=== PATIENT | male | born 1990 ===

== ENCOUNTER 2017-07-14 04:42 | Emergency (ER) | payer OTHER ==
--- NOTE | 2017-07-14 05:12 | C.PDOC ---
History Of Present Illness 27 year old male presents to the ER with a complaint of right a right sided tooth ache for the few days that worsened today. Denies fever.headache, dizziness, drainage or bleeding gums. Time Seen by Provider: 07/14/17 05:09 Chief Complaint (Nursing): Dental Pain History Per: Patient History/Exam Limitations: no limitations Onset/Duration Of Symptoms: Days Current Symptoms Are (Timing): Still Present Quality: Positive for: Aching Recent travel outside of the [place]: No Past Medical History Reviewed: Historical Data, Nursing Documentation, Vital Signs Vital Signs: Last Vital Signs Temp 98.1 F 07/14/17 04:49 Pulse 68 07/14/17 04:49 Resp 18 07/14/17 04:49 BP 146/82 07/14/17 04:49 Pulse Ox 99 07/14/17 05:19 - Medical History PMH: No Chronic Diseases Surgical History: No Surg Hx Family History: States: Unknown Family Hx - Social History Hx Alcohol Use: No Hx Substance Use: No - Immunization History Hx Tetanus Toxoid Vaccination: No Hx Influenza Vaccination: No Hx Pneumococcal Vaccination: No Review Of Systems ENT: Positive for: Mouth Pain. Negative for: Mouth Swelling, Throat Pain Physical Exam - Physical Exam Appears: Non-toxic, No Acute Distress Skin: Normal Color, Warm, Dry Head: Atraumatic, Normacephalic, No Swelling (Facial) Eye(s): bilateral: Normal Inspection, EOMI Oral Mucosa: Moist Tongue: Normal Appearing Lips: Normal Appearing Teeth: Caries (to right upper and lower posterior molars), Tender To Palpation, No Other (erythema) Gingiva: Normal Appearing, No Erythema, No Swelling, No Abscess, No Other ( erythema or fluctuant mass) Throat: Normal, No Erythema, No Exudate ED Course And Treatment O2 Sat by Pulse Oximetry: 99 (Room air) Pulse Ox Interpretation: Normal Progress Note: Motrin administered for pain, patient instructed to follow up with dentist for further management. Disposition - Disposition Referrals: Non [facility] Provider, [Non-Staff] - Disposition: HOME/ ROUTINE Disposition Time: 05:09 Condition: STABLE Additional Instructions: Please follw up with dentist today Take meds as prescribed if youre unable to see dentist this week Return if worse Prescriptions: Ibuprofen [Motrin Tab] 800 mg PO QID #20 tab Penicillin VK [Penicillin VK Tab] 500 mg PO Q6H #20 tab Instructions: Dental Caries (ED) Forms: [facility] (Czech), Work Excuse Print Language: ALBANIAN - Clinical Impression Clinical Impression: Dental caries - Scribe Statement The provider has reviewed the documentation as recorded by the Scribchristopher Garcia All medical record entries made by the Scribe were at my direction and personally dictated by me. I have reviewed the chart and agree that the record accurately reflects my personal performance of the history, physical exam, medical decision making, and the department course for this patient. I have also personally directed, reviewed, and agree with the discharge instructions and disposition.
[2017-07-14 05:26] VITALS: BP 146/82; PULSE 68; RESP 18; TEMP 98.1; O2SAT 99
== END 2017-07-14 05:22 | disposition home or self-care (01) ==
LOC: C.ER 04:42
DX: K02.9 Dental caries, unspecified (principal)